=== PATIENT | male | born 1975 | race Caucasian/White ===

== ENCOUNTER 2018-12-11 11:39 | Inpatient (IN) | payer OTHER ==
[2018-12-11 12:49] VITALS: BMI 23.1
--- NOTE | 2018-12-11 14:29 | HP ---
COWS - Scale Resting Pulse: 1= NE 81-100 Sweatin= No chills or Flushing Restless Observation: 1= Difficult to Sit Still Pupil Size: 0= Normal to Room Light Bone or Joint Aches: 1= Mild Discomfort Runny Nose/ Eye Tearin= None GI Upset > 30mins: 3= Vomiting/Diarrhea Tremor Observation: 0= None Yawning Observation: 0= None Anxiety or Irritability: 4=Extreme Anxiety Goose Flesh Skin: 0=Smooth Skin COWS Score: 10 CIWA Score Nausea/Vomitin-Mild Nausea/No Vomiting Muscle Tremors: None Anxiety: 4-Mod. Anxious/Guarded Agitation: 0-Normal Activity Paroxysmal Sweats: No Perspiration Orientation: 0-Oriented Tacttile Disturbances: 0-None Auditory Disturbances: 0-None Visual Disturbances: 0-None Headache: 0-None Present CIWA-Ar Total Score: 5 - Admission Criteria OASAS Guidelines: Admission for Medically Managed Detox: Requires at least one of the followin. CIWA greater than 12 2. Seizures within the past 24 hours 3. Delirium tremens within the past 24 hours 4. Hallucinations within the past 24 hours 5. Acute intervention needed for co occurring medical disorder 6. Acute intervention needed for co occurring psychiatric disorder 7. Severe withdrawal that cannot be handled at a lower level of care (continued vomiting, continued diarrhea, abnormal vital signs) requiring intravenous medication and/or fluids 8. Admission ROS [facility] Allergies/Adverse Reactions: Allergies Allergy/AdvReac Type Severity Reaction Status Date / Time Fish Containing Products Allergy Severe Swelling Verified 12/11/18 13:14 No Known Drug Allergies Allergy Unknown Verified 12/11/18 15:28 NKDA Allergy Uncoded 12/11/18 14:36 History of Present Illness: pt here requesting detox from etoh use , reports 1-2 x 6-pk/day " maybe more " x 6 years , denies interim sobriety , reports tremors if not drinking, sweating, moodiness, + blackouts, denies falls while intoxicated, denies seizures, latest etoh use was today, current CANDY 0.000 . heroin use ; latest use 6 am today , reports 1-2 gr/day ivdu in xiao UE & neck, needles from exchange , denies sharing or re-using, + abscess in the past , denies OD , has been in [facility] , stopped going in 2018, highest dose 140 mg . First age of use 16 , was in a Suboxone program, left program " I want to be off of everything" . cocaine : 1-2 gr/day IVDU , latest use today. cannabis : occasional tobacco : 1 ppd fentanyl : denies knowingly using . Reference #: [id number] Others' Prescriptions Patient Name: Tulio Marques Date: 1975 Address: [address] [place] [address] Sex: Male Rx Written Rx Dispensed Drug Quantity Days Supply Prescriber Name 10/09/2018 10/09/2018 suboxone 8 mg-2 mg sl film 42 21 Santhosh Tressa 09/18/2018 09/18/2018 suboxone 8 mg-2 mg sl film 42 21 SanthoshTressa mcmillan 09/04/2018 09/04/2018 suboxone 8 mg-2 mg sl film 28 14 SanthoshTressa 08/21/2018 08/21/2018 suboxone 8 mg-2 mg sl film 28 14 Santhosh Tressa 08/14/2018 08/15/2018 suboxone 8 mg-2 mg sl film 14 7 Tressa Trevizo PMHX : asthma , depression PShx : appy Exam Limitations: Clinical Condition, Intoxication - Ebola screening Have you traveled outside of the country in the last 21 days: No Have you had contact with anyone from an Ebola affected area: No Have you been sick,other than usual withdrawal symptoms: No Do you have a fever: No - Review of Systems Constitutional: See HPI EENT: reports: See HPI Respiratory: reports: No Symptoms reported Cardiac: reports: No Symptoms Reported GI: reports: See HPI : reports: No Symptoms Reported Musculoskeletal: reports: See HPI Integumentary: reports: See HPI Neuro: reports: No Symptoms reported Endocrine: reports: No Symptoms Reported Psychiatric: reports: Orientated x3, Anxious Patient History - Patient Medical History Hx Asthma: Yes Hx Chronic Obstructive Pulmonary Disease (COPD): No Hx Cardiac Disorders: No Hx Hypertension: No Hx Seizures: No Hx Diabetes: No Hx Gastrointestinal Disorders: No Hx Genitourinary Disorders: No Hx Sexually Transmitted Disorders: No Hx Renal Disease (ESRD): No Hx Depression: Yes Hx Suicide Attempt: Yes (hanged self with a rope in 1992) Hx Schizophrenia: No - Patient Surgical History Past Surgical History: Yes Hx Neurologic Surgery: No Hx Cataract Extraction: No Hx Cardiac Surgery: No Hx Lung Surgery: No Hx Breast Surgery: No Hx Breast Biopsy: No Hx Abdominal Surgery: No Hx Appendectomy: Yes (at age 28) Hx Cholecystectomy: No Hx Genitourinary Surgery: No Hx Section: No Hx Orthopedic Surgery: No Anesthesia Reaction: No - PPD History Previous Implant?: Yes Documented Results: Negative w/o proof Implanted On Prior [facility] Admission?: No - Smoking Cessation Smoking history: Current every day smoker Have you smoked in the past 12 months: Yes Aproximately how many cigarettes per day: 20 Hx Chewing Tobacco Use: No Initiated information on smoking cessation: No - Substances Abused Heroin Route: Injection Frequency: Daily Amount used: 10-15 bags Age of first use: 12 Date of Last Use: 12/10/18 Cocaine Route: Injection Frequency: Daily Amount used: $200 Age of first use: 12 Date of Last Use: 12/11/18 Alcohol-beer Route: Oral Frequency: Daily Amount used: 3-4 6 pks. Age of first use: 13 Date of Last Use: 12/09/18 K2 Route: Smoking Frequency: Daily Amount used: $60 Age of first use: 28 Date of Last Use: 12/11/18 Family Disease History - Family Disease History Family History: Denies Admission Physical Exam BHS - Vital Signs Vital Signs: Vital Signs - 24 hr 12/11/18 12:46 Temperature 96.8 F L Pulse Rate 82 Respiratory 18 Rate Blood Pressure 94/52 L - Physical General Appearance: Yes: Disheveled, Intoxicated, Other (drowsy , falls asleep frequently during interview , easily awakened by verbal stimuli .) HEENTM: Yes: EOMI, Hearing grossly Normal, Normocephalic, Normal Voice Respiratory: Yes: Chest Non-Tender, Lungs Clear, Normal Breath Sounds Neck: Yes: No masses,lesions,Nodules, Trachea in good position Cardiology: Yes: Regular Rhythm, Regular Rate, S1, S2, Murmur Abdominal: Yes: Normal Bowel Sounds, Non Tender, Soft Back: Yes: Normal Inspection Musculoskeletal: Yes: Other (staggering gait) Extremities: Yes: Normal Capillary Refill, Erythema (xiao hands) Neurological: Yes: Motor Strength 5/5 Integumentary: Yes: Normal Color, Dry, Warm, Track Gonzalez (xiao UE left > R , right side of neck) - Diagnostic (1) Alcohol dependence Current Visit: Yes Status: Acute Qualifiers: Substance use status: in withdrawal (2) Opioid dependence Current Visit: Yes Status: Acute Qualifiers: Substance use status: in withdrawal Qualified Code(s): F11.23 - Opioid dependence with withdrawal (3) Cocaine dependence Current Visit: Yes Status: Chronic Qualifiers: Substance use status: uncomplicated Qualified Code(s): F14.20 - Cocaine dependence, uncomplicated (4) Nicotine dependence Current Visit: Yes Status: Chronic Qualifiers: Nicotine product type: cigarettes (5) Cannabis use disorder, mild, abuse Current Visit: Yes Status: Chronic BHS Breath Alcohol Content Breath Alcohol Content: 0 Urine Drug Screen - Results Drug Screen Negative: No Urine Drug Screen Results: THC-Marijuana, LEW-Cocaine, OPI-Opiates, FEN-Fentanyl Inpatient Rehab Admission - Rehab Decision to Admit Inpatient rehab admission?: No
[2018-12-11] MEDS ORDERED: IBUPROFEN 400 MG TABLET (FP) PO PRN (14:53)
[2018-12-11] MEDS ORDERED: MAGNESIUM CITRATE 300 ML BOTTLE PO PRN (14:53)
[2018-12-11] MEDS ORDERED: BISMUTH SUBSALICYLATE 262 MG/15 ML BTL PO PRN (14:53)
[2018-12-11] MEDS ORDERED: MAG HYDROX/AL HYDROX/SIMETH 30 ML UNIT-DOSE CUP PO PRN (14:53)
[2018-12-11] MEDS ORDERED: cloNIDine HCL 0.1 MG TABLET PO PRN (14:53)
[2018-12-11] MEDS ORDERED: MENTHOL/PHENOL 1 EACH UD MM PRN (14:53)
[2018-12-11] MEDS ORDERED: MAGNESIUM HYDROX 2400MG/30ML ORAL SUSPENSION 30 ML CUP PO PRN (14:53)
[2018-12-11] MEDS ORDERED: ACETAMINOPHEN 325 MG TABLET (FP) PO PRN ×2 (14:53)
[2018-12-11] MEDS ORDERED: diazePAM 5 MG TABLET PO PRN (14:53)
[2018-12-11] MEDS ORDERED: NICOTINE POLACRILEX 2 MG GUM BUC PRN (14:53)
[2018-12-11] MEDS ORDERED: MELATONIN 5 MG TABLETS PO PRN (14:53)
[2018-12-11] MEDS ORDERED: ALBUTEROL SO4 0.083% IH SOL 2.5 MG/3 ML VIAL.NEB. NEB PRN (14:56)
[2018-12-11] MEDS ORDERED: THIAMINE HCL 100 MG TABLET (FP) PO SCH (22:00)
[2018-12-11] MEDS ORDERED: METHADONE HCL 10 MG TABLET (FOR DETOX USE ONLY) PO ONE (23:00)
[2018-12-11] MEDS: diazePAM 5 MG TABLET PO SCH (23:09)
[2018-12-12] MEDS: diazePAM 5 MG TABLET PO SCH (06:14)
[2018-12-12 06:16] VITALS: BP 131/66; PULSE 58; TEMP 96.1
--- NOTE | 2018-12-12 09:24 | PN ---
[facility] Progress Note Note: pt approached song writer that he just got here and is frustrated and wants to leave right now. Pt states that he refuses to continue to talk to anyone and wants to leave. Pt was asked along with nursing if there is anything that we can provide but he said leave me alone and get my papers ready. pt walked away.
--- NOTE | 2018-12-12 09:29 | DS ---
[facility] Detox Discharge Summary Admission Date: 12/11/18 - History Present History: Alcohol Dependence, Cannabis Dependence, Cocaine Dependence, Opioid Dependence - Physical Exam Results Vital Signs: Vital Signs Temperature 96.1 F L 12/12/18 06:00 Pulse Rate 58 L 12/12/18 06:00 Respiratory Rate 16 12/12/18 06:00 Blood Pressure 131/66 12/12/18 06:00 O2 Sat by Pulse Oximetry (%) - Treatment Hospital Course: Discharged Condition Good - Medication Discharge Medications: Ambulatory Orders Albuterol Sulfate Inhaler - [Ventolin Hfa Inhaler -] 2 inh PO Q4H PRN 12/11/18 - Diagnosis (1) Alcohol dependence Current Visit: Yes Status: Chronic Qualifiers: Substance use status: uncomplicated Qualified Code(s): F10.20 - Alcohol dependence, uncomplicated (2) Opioid dependence Current Visit: Yes Status: Chronic Qualifiers: Substance use status: uncomplicated Qualified Code(s): F11.20 - Opioid dependence, uncomplicated (3) Cannabis use disorder, mild, abuse Current Visit: Yes Status: Chronic (4) Cocaine dependence Current Visit: Yes Status: Chronic Qualifiers: Substance use status: uncomplicated Qualified Code(s): F14.20 - Cocaine dependence, uncomplicated (5) Nicotine dependence Current Visit: Yes Status: Chronic Qualifiers: Nicotine product type: cigarettes Substance use status: uncomplicated Qualified Code(s): F17.210 - Nicotine dependence, cigarettes, uncomplicated - AMA Did Patient Leave Against Medical Advice: Yes (going home.)
[2018-12-12] MEDS ORDERED: PRENATAL VITAMINS W/ FOLIC ACID TABLET (FP) PO SCH (10:00)
[2018-12-12] MEDS ORDERED: METHADONE HCL 5 MG TABLET (FOR DETOX USE ONLY) PO ONE (10:00)
[2018-12-13] MEDS ORDERED: METHADONE HCL 10 MG TABLET (FOR DETOX USE ONLY) PO ONE (10:00)
[2018-12-13] MEDS ORDERED: diazePAM 5 MG TABLET PO SCH (10:00)
--- NOTE | 2018-12-13 11:58 | EKG ---
Test Reason : Blood Pressure : / mmHG Vent. Rate : 064 BPM Atrial Rate : 064 BPM P-R Int : 154 ms QRS Dur : 090 ms QT Int : 406 ms P-R-T Axes : 067 070 059 degrees QTc Int : 418 ms NORMAL SINUS RHYTHM WITH SINUS ARRHYTHMIA NORMAL ECG NO PREVIOUS ECGS AVAILABLE Confirmed by ANTHONY RILEY, LENA ([id number]) on 12/13/2018 11:57:27 AM Referred By: Confirmed By:LENA CRUZ MD
[2018-12-14] MEDS ORDERED: diazePAM 5 MG TABLET PO SCH (06:00)
[2018-12-14] MEDS ORDERED: METHADONE HCL 5 MG TABLET (FOR DETOX USE ONLY) PO ONE (06:00)
== END 2018-12-12 10:30 | disposition left against medical advice (07) | DRG 770 ==
LOC: YASAS 11:39 → Y6N 15:27
PROVIDERS: ADMIT Surgery; ATTEND Surgery
PROC: HZ2ZZZZ Detoxification Services for Substance Abuse Treatment (ICD-10-PCS; principal; 2018-12-11)
DX: F11.23 Opioid dependence with withdrawal (principal); F10.230 Alcohol dependence with withdrawal, uncomplicated; F14.20 Cocaine dependence, uncomplicated; F12.10 Cannabis abuse, uncomplicated; F17.210 Nicotine dependence, cigarettes, uncomplicated; J45.909 Unspecified asthma, uncomplicated; R01.1 Cardiac murmur, unspecified; Z91.013 Allergy to seafood; Z91.5 Personal history of self-harm; Z59.0 Homelessness
CPT/HCPCS: 93005; 93010

== ENCOUNTER 2020-09-14 12:32 | Inpatient (IN) | payer OTHER ==
[2020-09-14 13:20] VITALS: BMI 23.6
[2020-09-14] MEDS ORDERED: chlordiazePOXIDE HCL 25 MG CAPSULE PO PRN (13:44)
[2020-09-14] MEDS ORDERED: ONDANSETRON *ODT* 4 MG TABLET SL PRN (13:44)
[2020-09-14] MEDS ORDERED: METHADONE HCL 10 MG TABLET (FOR DETOX USE ONLY) PO ONE (13:44)
[2020-09-14] MEDS ORDERED: NICOTINE POLACRILEX 2 MG GUM BUC PRN (13:44)
[2020-09-14] MEDS ORDERED: IBUPROFEN 400 MG TABLET (FP) PO PRN (13:44)
[2020-09-14] MEDS ORDERED: METHOCARBAMOL 500 MG TABLET PO PRN (13:44)
[2020-09-14] MEDS ORDERED: MAGNESIUM CITRATE 300 ML BOTTLE PO PRN (13:44)
[2020-09-14] MEDS ORDERED: chlordiazePOXIDE HCL 25 MG CAPSULE PO ONE (13:44)
[2020-09-14] MEDS ORDERED: MENTHOL/PHENOL 1 EACH UD MM PRN (13:44)
[2020-09-14] MEDS ORDERED: ACETAMINOPHEN 325 MG TABLET (FP) PO PRN ×2 (13:44)
[2020-09-14] MEDS ORDERED: MAG HYDROX/AL HYDROX/SIMETH 30 ML UNIT-DOSE CUP PO PRN (13:44)
[2020-09-14] MEDS ORDERED: BISMUTH SUBSALICYLATE 262 MG/15 ML BTL PO PRN (13:44)
[2020-09-14] MEDS ORDERED: cloNIDine HCL 0.1 MG TABLET PO PRN (13:44)
[2020-09-14] MEDS ORDERED: MAGNESIUM HYDROX 2400MG/30ML ORAL SUSPENSION 30 ML CUP PO PRN (13:44)
[2020-09-14] MEDS ORDERED: ALBUTEROL SO4 HFA INHALER IH PRN (13:46)
[2020-09-14] MEDS ORDERED: hydrOXYzine PAMOATE 25 MG CAPSULE (FP) PO SCH (14:00)
[2020-09-14] MEDS: BACITRACIN 0.9 GM PACKET TP SCH (14:55)
[2020-09-14] MEDS: NICOTINE 21 MG/24 HOURS TOPICAL PATCH TD SCH (15:09)
[2020-09-14] MEDS ORDERED: hydrOXYzine PAMOATE 25 MG CAPSULE (FP) PO PRN (15:44)
[2020-09-14] MEDS: AMOX TR/POT CLAV 875MG/125MG TABLETS (FP) PO SCH (17:51)
[2020-09-14] MEDS: chlordiazePOXIDE HCL 25 MG CAPSULE PO SCH ×2 (17:51→23:06)
[2020-09-14 18:02] LABS: POTASSIUM 4.1 mmol/L (3.5-5.1)
[2020-09-14 18:05] LABS: ALBUMIN 3.3 g/dl (3.4-5.0); BLOOD UREA NITROGEN 16.1 mg/dL (7-18); CALCIUM 9.2 mg/dL (8.5-10.1)
[2020-09-14 18:06] LABS: HEMATOCRIT 44.4 % (35.4-49); HEMOGLOBIN 14.6 GM/dL (11.7-16.9); MCH 28.2 pg (25.7-33.7); MCHC 32.8 g/dl (32.0-35.9); MEAN CELL VOLUME 85.9 fl (80-96); MEAN PLT VOLUME 9.6 fl (7.5-11.1); PLATELET COUNT 245 K/MM3 (134-434); RBC 5.17 M/mm3 (4.00-5.60); RDW 14.3 % (11.9-15.9); WHITE BLOOD COUNT 8.1 K/mm3 (4.0-10.0)
[2020-09-14 18:08] LABS: CREATININE 0.8 mg/dL (0.55-1.3)
[2020-09-14 18:10] LABS: BILIRUBIN,TOTAL 0.6 mg/dL (0.2-1); TOT PROT 7.9 g/dl (6.4-8.2)
[2020-09-14] MEDS: MELATONIN 5 MG TABLETS PO SCH (23:06)
[2020-09-14] MEDS: THIAMINE HCL 100 MG TABLET (FP) PO SCH (23:07)
[2020-09-14] MEDS: QUEtiapine FUMARATE 50 MG TABLET PO SCH (23:07)
[2020-09-15] MEDS: chlordiazePOXIDE HCL 25 MG CAPSULE PO SCH ×4 (07:08→22:25)
[2020-09-15] MEDS: AMOX TR/POT CLAV 875MG/125MG TABLETS (FP) PO SCH ×2 (07:09→18:40)
[2020-09-15] MEDS ORDERED: METHADONE HCL 10 MG TABLET (FOR DETOX USE ONLY) ONE (09:24)
[2020-09-15] MEDS ORDERED: METHADONE HCL 5 MG TABLET (FOR DETOX USE ONLY) ONE (09:24)
[2020-09-15] MEDS ORDERED: SERTRALINE HCL 50 MG TABLET (FP) PO SCH (10:00)
[2020-09-15] MEDS ORDERED: METHADONE (DETOX) 20 MG, METHADONE (DETOX) 5 MG PO ONE (10:00)
[2020-09-15] MEDS: BACITRACIN 0.9 GM PACKET TP SCH (10:02)
[2020-09-15] MEDS: PRENATAL VITAMINS W/ FOLIC ACID TABLET (FP) PO SCH (10:07)
[2020-09-15] MEDS: NICOTINE 21 MG/24 HOURS TOPICAL PATCH TD SCH (10:07)
[2020-09-15] MEDS: THIAMINE HCL 100 MG TABLET (FP) PO SCH (22:25)
[2020-09-15] MEDS: QUEtiapine FUMARATE 50 MG TABLET PO SCH (22:25)
[2020-09-15] MEDS: MELATONIN 5 MG TABLETS PO SCH (22:30)
[2020-09-16] MEDS: chlordiazePOXIDE HCL 25 MG CAPSULE PO SCH ×2 (05:43→10:15)
[2020-09-16] MEDS: AMOX TR/POT CLAV 875MG/125MG TABLETS (FP) PO SCH (07:01)
[2020-09-16] MEDS ORDERED: SERTRALINE HCL 25 MG TABLET (FP) PO SCH (10:00)
[2020-09-16] MEDS ORDERED: METHADONE HCL 10 MG TABLET (FOR DETOX USE ONLY) PO ONE (10:00)
[2020-09-16] MEDS: NICOTINE 21 MG/24 HOURS TOPICAL PATCH TD SCH (10:15)
[2020-09-16] MEDS: PRENATAL VITAMINS W/ FOLIC ACID TABLET (FP) PO SCH (10:15)
[2020-09-16] MEDS: BACITRACIN 0.9 GM PACKET TP SCH (10:15)
[2020-09-16] MEDS ORDERED: AMMONIUM LACTATE 12% LOTION 225 GM BOTTLE TP SCH (11:45)
[2020-09-16 12:08] VITALS: BP 122/86; PULSE 89; TEMP 98.1
[2020-09-17] MEDS ORDERED: chlordiazePOXIDE HCL 10 MG CAPSULE PO PRN
[2020-09-17] MEDS ORDERED: chlordiazePOXIDE HCL 10 MG CAPSULE PO SCH (05:00)
[2020-09-17] MEDS ORDERED: METHADONE (DETOX) 10 MG, METHADONE (DETOX) 5 MG PO ONE (10:00)
[2020-09-18] MEDS ORDERED: chlordiazePOXIDE HCL 10 MG CAPSULE PO SCH (05:00)
[2020-09-18] MEDS ORDERED: METHADONE HCL 10 MG TABLET (FOR DETOX USE ONLY) PO ONE (10:00)
[2020-09-19] MEDS ORDERED: chlordiazePOXIDE HCL 10 MG CAPSULE PO ONE (05:00)
[2020-09-19] MEDS ORDERED: METHADONE HCL 5 MG TABLET (FOR DETOX USE ONLY) PO ONE (06:00)
== END 2020-09-16 13:05 | disposition left against medical advice (07) | DRG 770 ==
LOC: YASAS 12:32 → Y6N 14:00
PROVIDERS: ADMIT Allergy & Immunology; ATTEND Allergy & Immunology
PROC: HZ2ZZZZ Detoxification Services for Substance Abuse Treatment (ICD-10-PCS; principal; 2020-09-14)
DX: F11.23 Opioid dependence with withdrawal (principal); F10.230 Alcohol dependence with withdrawal, uncomplicated; F14.20 Cocaine dependence, uncomplicated; F12.10 Cannabis abuse, uncomplicated; F17.210 Nicotine dependence, cigarettes, uncomplicated; F43.10 Post-traumatic stress disorder, unspecified; J45.909 Unspecified asthma, uncomplicated; L02.413 Cutaneous abscess of right upper limb; B18.2 Chronic viral hepatitis C; Z91.013 Allergy to seafood; Z59.0 Homelessness
CPT/HCPCS: 36415; 80053; 82962; 83036; 85027; 86780; C9803; U0003